=== PATIENT | male | born 1980 | race Caucasian/White ===

== ENCOUNTER 2021-05-25 21:32 | Outpatient (REF) | payer SELFPAY ==
[2021-05-27 13:28] LABS: COVID-19 RT-PCR UVMMC Result Negative (Negative)
== END 2021-05-25 21:33 | disposition home or self-care (01) ==
LOC: LBN ADD 21:32
PROVIDERS: Visit Provider Nurse Practitioner Family
DX: Z20.822 Contact with and (suspected) exposure to COVID-19 (principal); J06.9 Acute upper respiratory infection, unspecified
CPT/HCPCS: U0003

== ENCOUNTER 2021-08-23 20:27 | Outpatient (REF) | payer OTHER, SELFPAY ==
[2021-08-23 21:02] LABS: Abs Immature Grans 0.02 10^3/uL (0.0-0.06); Absolute Basophil Count 0.07 10^3/uL (0.0-0.2); Absolute Eosinophil Count 0.12 10^3/uL (0.0-0.7); Absolute Lymphocyte Count 2.67 10^3/uL (1.2-3.4); Absolute Monocyte Count 0.71 10^3/uL (0.1-0.8); Absolute Neutrophil Count 3.69 10^3/uL (1.2-6.7); Eosinophils % 1.6; HCT 45.2 % (40.0-50.0); HGB 15.5 g/dL (13.5-17.5); Immature Grans % 0.3; Lymphocytes % 36.7; MCH 31.8 pg (27.0-33.0); MCHC 34.3 % (32.0-36.0); MCV 92.8 fL (80-95); MPV 12.6 fL (8.0-11.0); Monocytes % 9.8; Neutrophils % 50.6; Platelet Count 166 10^3/uL (130-400); RBC 4.87 10^6/uL (4.36-5.78); RDW 12.7 % (11.8-14.1); RDW-SD 43.6 fL; WBC 7.28 10^3/uL (4.4-10.8)
[2021-08-23 21:20] LABS: Anion Gap 7.6 mmol/L (3-11); BUN 12 mg/dL (7-18); CO2 27.4 mmol/L (21.0-32.0); Calcium 9.1 mg/dL (8.5-10.1); Chloride 106 mmol/L (98-107); Glucose 137 mg/dL (74-106); Potassium 4.1 mmol/L (3.5-5.1); Sodium 141 mmol/L (136-145); TSH (W/Ref FT4) 1.16 uIU/mL (0.36-3.74)
== END 2021-08-23 20:28 | disposition home or self-care (01) ==
LOC: LBN 20:27
PROVIDERS: Visit Provider Family Medicine
DX: B09 Unspecified viral infection characterized by skin and mucous membrane lesions (principal)
CPT/HCPCS: 80048; 86308; 84443; 85025

== ENCOUNTER 2022-09-13 19:22 | Emergency (ER) | payer OTHER, SELFPAY ==
[2022-09-13 19:26] VITALS: BP 142/92; PULSE 108; RESP 16; TEMP 36.5; O2SAT 97
--- NOTE | 2022-09-13 19:49 | ED.GENADUL_ITS ---
Discharge Plan Disposition Patient Disposition: Home Discharge Details Clinical Impression: Abrasion, corneal Primary Care Provider: Unknown,Unknown ED Provider: Jaspal Lyons Home Meds and New Rx's Prescriptions: New ofloxacin 0.3 % drops See Rx Instructions .ROUTE .COMPLEX Qty: 10 0RF Rx Instructions: put 1-2 drps into affected eye(s) every 2-4 h x 2 days, then 1-2 drps 4 elizabeth es/day days 3-5 Discharge Instructions Instructions: Corneal Abrasion (ED) Additional Instructions: Please use medication as prescribed. Please return to the emergency department have any worsening symptoms Medical Decision Making 42-year-old male presents shortly after having a CO2 canister fell off a shelf onto his right eye, OD 20/40, OS 20/20, evidence of superficial corneal abrasion on fluorescein stain inferior aspect of right cornea, negative Edwar sign, no ulceration, no proptosis, no evidence of maxillary fracture, extraocular motion intact, feeling much better after tetracaine application. We will start patient on ofloxacin. Home care instructions and return precautions given. No evidence of globe rupture or facial bone fracture. HPI General Date/Time Provider Initiated Documentation: 09/13/22 19:35 . HPI Narrative: 42-year-old male presents shortly after having a CO2 canister from a shelf fell onto his right eye. Pain and discharge from right eye. Related Data Home Medications Medication Instructions Recorded Confirmed ofloxacin 0.3 % eye drops See Rx Instructions ophthalmic 09/13/22 (eye) .COMPLEX #10 mL Previous Rx's Medication Instructions Recorded ofloxacin 0.3 % eye drops See Rx Instructions ophthalmic 09/13/22 (eye) .COMPLEX #10 mL General Stated Complaint: EyeProblem JEROD: 3 Review of Systems Narrative: Review of Systems Constitutional: negative Eyes: Eye injury ENT: negative Cardiovascular: negative Respiratory: negative Gastrointestinal: negative : negative Musculoskeletal: negative Skin: negative Neurologic: negative Psych: negative PFSH All Active Problems (Updated 09/13/22 @ 19:55 by Jaspal Lyons MD) Abrasion, corneal (Acute) Social History Smoking/Tobacco Use Status: Current, status unknown Tobacco Type: cigarettes Tobacco: How many years used: 25 Smoking risk assessment performed?: Yes Alcohol Intake: never Substance use type: does not use Do you feel safe at home: Yes Do you feel safe in your relationship?: Yes Exam Narrative Exam Narrative: Physical Examination General: alert, awake, cooperative, resting comfortably, no acute distress HEENT: normocephalic, atraumatic; PERRL, EOM intact, conjunctiva normal; no nasal discharge; moist mucous membranes, oral and pharyngeal mucosa normal, tolerating secretions Eye: Extraocular motion intact, no proptosis, OD 20/40 evidence of superficial corneal abrasions inferior aspect of cornea, negative Edwar sign, no ulceration, OS 20/20 Neck: supple, trachea midline; full ROM Chest: normal to inspection Neuro: AAOx3, normal speech, moving all extremities Psych: Appropriate mood and affect Course Vital Signs Vital signs: Vital Signs Temperature 36.5 C 09/13/22 19:26 Pulse 108 H 09/13/22 19:26 Respiratory Rate 16 09/13/22 19:26 Blood Pressure 142/92 H 09/13/22 19:26 Pulse Oximetry 97 09/13/22 19:26 Temperature 36.5 C 09/13/22 19:26 Temperature Source Oral 09/13/22 19:26 Pulse 108 H 09/13/22 19:26 Respiratory Rate 16 09/13/22 19:26 Respiratory Effort Normal, Non-Labored 09/13/22 19:30 Blood Pressure 142/92 H 09/13/22 19:26 Blood Pressure Position Sitting 09/13/22 19:26 Pulse Oximetry 97 09/13/22 19:26 Oxygen Delivery Method Room Air 09/13/22 19:26 Oxygen Flow Rate 0 09/13/22 19:26 Pain Level 3 09/13/22 19:26
[2022-09-13] MEDS: Fluorescein STRIPS 100/BOX 1 MG (19:57)
[2022-09-13] MEDS: Tetracaine 0.5% 4 ML BTL (19:57)
== END 2022-09-13 20:18 | disposition home or self-care (01) ==
LOC: ER 23:25
PROVIDERS: Emergency Provider Emergency Medicine
DX: S05.01XA Injury of conjunctiva and corneal abrasion without foreign body, right eye, initial encounter (principal); W20.8XXA Other cause of strike by thrown, projected or falling object, initial encounter
CPT/HCPCS: 99283

== ENCOUNTER 2023-08-24 15:02 | Outpatient (REF) | payer OTHER, SELFPAY ==
[2023-08-24 14:34] LABS: HCT 45.6 % (40.0-50.0); HGB 15.8 g/dL (13.5-17.5); MCH 31.9 pg (27.0-33.0); MCHC 34.6 % (32.0-36.0); MCV 92 fL (80-95); MPV 12.4 fL (8.0-11.0); Platelet Count 167 10^3/uL (130-400); RBC 4.96 10^6/uL (4.36-5.78); RDW 12.5 % (11.8-14.1); RDW-SD 42.2 fL; WBC 5.71 10^3/uL (4.4-10.8)
[2023-08-24 15:41] LABS: Hemoglobin A1C 6.9 % (<5.7)
[2023-08-24 21:04] LABS: ALT 65 U/L (16-63); AST 30 U/L (15-37); Albumin 4.1 g/dL (3.4-5.0); Alkaline Phosphatase 47 U/L (46-116); BUN 12 mg/dL (7-18); Bilirubin, Total 0.5 mg/dL (0.2-1.0); CREATININE 1.1 mg/dL (0.70-1.30); Calcium 9.2 mg/dL (8.5-10.1); Calculated LDL 77 mg/dL (<100); Chloride 104 mmol/L (98-107); Cholesterol 149 mg/dL (<200); Estimated GFR 85.42 (mL/min/1.73m2); Glucose 192 mg/dL (74-106); HDL Cholesterol 52 mg/dL (40-60); Potassium 4.3 mmol/L (3.5-5.1); Sodium 140 mmol/L (136-145); TSH (W/Ref FT4) 1.39 uIU/mL (0.36-3.74); Total Protein 6.9 g/dL (6.4-8.2); Triglyceride 101 mg/dL (<150)
== END 2023-08-24 15:03 | disposition home or self-care (01) ==
LOC: NCHCN 15:02
PROVIDERS: Visit Provider Nurse Practitioner Family
DX: F41.8 Other specified anxiety disorders (principal); R79.89 Other specified abnormal findings of blood chemistry; E66.01 Morbid (severe) obesity due to excess calories; Z68.41 Body mass index [BMI] 40.0-44.9, adult
CPT/HCPCS: 80053; 80061; 85027; 83036; 84443

== ENCOUNTER 2024-04-03 11:35 | Emergency (ER) | payer OTHER, SELFPAY ==
[2024-04-03 11:38] VITALS: BP 141/118; PULSE 96; RESP 15; TEMP 36.3; O2SAT 98
--- NOTE | 2024-04-03 12:25 | DI.RAD_ITS ---
Exam(s) XR TIB/FIB RT EXAM: XR TIB/FIB RT CLINICAL HISTORY: Pain, bruising, Fall. TECHNIQUE: 2D digital imaging was performed. Two views. COMPARISON: No exams were available for comparison FINDINGS: BONES: No acute fracture is present. No bony destructive lesion is seen. Visualized portion of knee a nd ankle joints are unremarkable. SOFT TISSUE: Anterior swelling. IMPRESSION: No acute bony abnormality. DATA REPOSITORY: RADIATION DOSE DELIVERED:
[2024-04-03 13:21] VITALS: BP 162/105; PULSE 93; O2SAT 94
--- NOTE | 2024-04-04 10:38 | ED.GENADUL_ITS ---
Discharge Plan Disposition Patient Disposition: Home Condition: Stable Discharge Details Clinical Impression: Abrasion of skin, Contusion of skin Primary Care Provider: Unknown,Unknown ED Provider: Carol Rogers Home Meds and New Rx's Prescriptions: New cephalexin 500 mg capsule 500 mg PO Q6H 7 Days Qty: 28 0RF Continued bupropion HCl 300 mg tablet extended release 24 hr 300 mg PO DAILY Discharge Instructions Instructions: Acute Pain, Adult Additional Instructions: keep wounds clean and dry take keflex for developing skin infection motrin/tylenol as needed for pain return with spreading redness, fever, worsening pain Discharge Data Discharge Date/Time-TO BE ENTERED AT DEPARTURE: 04/03/24 13:29 HPI General Date/Time Provider Initiated Documentation: 04/03/24 13:02 . HPI Narrative: This 43-year-old male presents with right lower leg pain after falling onto a stone while walking his dog in 29 March. He states that he had a large abrasion but the pain has been worsening over the course of the past weekend and has had prior surgery on his knee so he wanted to get checked out. He denies any additional traumas associated with the fall. Related Data Home Medications ?Medication ?Instructions ?Recorded ?Confirmed bupropion HCl 300 mg 24 hr tablet, 300 mg PO DAILY 04/03/24 04/03/24 extended release cephalexin 500 mg capsule 500 mg PO Q6H 7 days #28 caps 04/03/24 Previous Rx's ?Medication ?Instructions ?Recorded cephalexin 500 mg capsule 500 mg PO Q6H 7 days #28 caps 04/03/24 Allergies Allergy/AdvReac Type Severity Reaction Status Date / Time No Known Allergies Allergy Unverified 04/03/24 11:42 General Stated Complaint: Orthopedic JEROD: 4 Exam Narrative Exam Narrative: 43-year-old male presenting in no acute distress with a large abrasion which looks like it is developing infection right lower extremity with palpable tenderness overlying the proximal tibia. No purulent drainage or fluctuance. No obvious effusion to knee or tenderness to any, no tenderness to ankle or hip appreciated on acute exam. Alert and oriented x 4, ambulatory Course Vital Signs Vital signs: Vital Signs Temperature 36.3 C L 04/03/24 11:38 Pulse 96 H 04/03/24 11:38 Respiratory Rate 15 04/03/24 11:38 Blood Pressure 141/118 H 04/03/24 11:38 Pulse Oximetry 98 12/04/24 11:38 Temperature 36.3 C L 04/03/24 11:38 Pulse 93 H 04/03/24 13:21 Respiratory Rate 15 04/03/24 11:38 Respiratory Effort Normal 04/03/24 13:26 Blood Pressure 162/105 H 04/03/24 13:21 Blood Pressure Position Sitting 04/03/24 11:38 Pulse Oximetry 94 04/03/24 13:21 Oxygen Delivery Method Room Air 04/03/24 13:21 Oxygen Flow Rate 0 04/03/24 13:21 Pain Level 3 04/03/24 13:21 Medical Decision Making 40-year-old male presenting in no acute distress for right lower extremity tenderness after a fall, x-ray of tib-fib does not show evidence of acute abnormality per radiology interpretation and my review. I will treat with Keflex for suspected developing cellulitis. Patient will keep wound clean and dry with recheck in 3 to 4 days recommended. Patient will need blood pressure rechecked by primary care physician as his diastolics quite high although patient is asymptomatic with this finding. Return precautions reviewed and patient expressed understanding. Afebrile and otherwise nontoxic in appearance Quality:SDOH Health Related Social Needs: No Data to Display PFSH All Active Problems (Updated 04/03/24 @ 13:03 by LUCAS Simms) Contusion of skin (Acute) Abrasion of skin (Acute) Social History Smoking/Tobacco Use Status: Current, status unknown Tobacco Type: cigarettes Tobacco: How many years used: 25 Smoking risk assessment performed?: Yes Alcohol Intake: never Substance use type: does not use Do you feel safe at home: Yes Do you feel safe in your relationship?: Yes
== END 2024-04-03 13:29 | disposition home or self-care (01) ==
PROVIDERS: Emergency Provider Physician Assistant
DX: S80.811A Abrasion, right lower leg, initial encounter (principal); W01.198A Fall on same level from slipping, tripping and stumbling with subsequent striking against other object, initial encounter; Y93.01 Activity, walking, marching and hiking
CPT/HCPCS: 99283; 73590

== ENCOUNTER 2024-04-27 12:09 | Outpatient (CLI) | payer OTHER, SELFPAY ==
--- NOTE | 2024-04-27 14:45 | DI.RAD_ITS ---
Exam(s) XR KNEE LT 3V AP,LAT,ALBER EXAM: XR KNEE LT 3V AP,LAT,ALBER CLINICAL HISTORY: knee pain, left, fall. TECHNIQUE: 2D digital imaging was performed. Three views. COMPARISON: No exams were available for comparison FINDINGS: BONES: No acute fracture is present. No bony destructive lesion is seen. JOINTS: The joint spaces are maintained. Minimal periarticular spurring. The knee is normally align ed. A small joint effusion is seen. SOFT TISSUE: Normal. IMPRESSION: Small joint effusion. No evidence of fracture. DATA REPOSITORY: RADIATION DOSE DELIVERED:
--- NOTE | 2024-04-27 16:28 | DI.VRAD_ITS ---
PROCEDURE INFORMATION: Exam: XR Left Knee Exam date and time: 04/27/2024 2:57 PM Age: 43 years old Clinical indication: Injury or trauma; Fall; Blunt trauma; Knee; Left TECHNIQUE: Imaging protocol: Radiologic exam of the left knee. Views: 3 views. COMPARISON: US SOFT TISS EXTREMITY/GROIN 10/03/2023 11:10 AM FINDINGS: Bones/joints: A small joint effusion is present. Bone density is grossly appropriate. Alignment is anatomic. No evidence for fracture. Soft tissues: Normal. IMPRESSION: 1. Minimal joint effusion. No evidence for fracture. Dictated and Authenticated by: Aure Bird MD. Ordering:NEFTALI Alvares MD
== END 2024-04-27 12:29 ==
LOC: DI 06-18 12:11
PROVIDERS: Visit Provider Physician Assistant
DX: M25.562 Pain in left knee (principal); M25.462 Effusion, left knee
CPT/HCPCS: 73562

== ENCOUNTER 2024-09-08 19:24 | Emergency (ER) | payer OTHER, SELFPAY ==
[2024-09-08 19:32] VITALS: BP 139/96; PULSE 97; RESP 16; TEMP 36.4; O2SAT 96
[2024-09-08] MEDS: Amox. 875/Clav. 125, 2 TABS/BTL 1 TAB PO (20:18)
[2024-09-08] MEDS: Diph,Pertuss(Acell),Tet Vac/Pf 0.5 ML SYR IM (20:19)
--- NOTE | 2024-09-09 | ED.GENADUL_ITS ---
Discharge Plan Disposition Patient Disposition: Home Condition: Good Discharge Details Clinical Impression: Dog bite of left forearm with infection Primary Care Provider: Unknown,Unknown ED Provider: Gabriela Herrera Home Meds and New Rx's Prescriptions: New amoxicillin-pot clavulanate 875-125 mg tablet 1 tab PO BID Qty: 14 0RF No Action bupropion HCl 300 mg tablet extended release 24 hr 300 mg PO DAILY lisinopril 5 mg tablet 5 mg PO ONCE Patient Comments: TAKE ONE TABLET BY MOUTH EVERY DAY Discharge Instructions Instructions: Animal Bites ED Additional Instructions: Please call [facility] first thing in the morning to schedule follow-up appointment for reevaluation within the week. You are being treated for an infected dog bite. Take the amoxicillin for the full course as prescribed; I recommend that you take this with a probiotic such as Activia yogurt to help prevent antibiotic associated diarrhea. Please clean the wound twice daily with antibacterial soap and water. Use a warm compress for 10 to 15 minutes at a time 4-5 times a day. May use Tylenol or ibuprofen as needed for discomfort. Your tetanus was updated today Return to emergency You develop new fever/chills, general malaise, worsening redness/swelling/pain despite treatment, numbness to your hand/color change to your hand, or if you are very worried you need to be rechecked again immediately Referrals: [facility] [Provider Group] Discharge Data Discharge Date/Time-TO BE ENTERED AT DEPARTURE: 09/08/24 20:26 HPI <Patito Joe MD - Last Filed: 09/09/24 00:02> General Date/Time Provider Initiated Documentation: 09/08/24 19:36 . Related Data Home Medications ?Medication ?Instructions ?Recorded ?Confirmed bupropion HCl 300 mg 24 hr tablet, 300 mg PO DAILY 04/03/24 09/08/24 extended release amoxicillin 875 mg-potassium 1 tab PO BID #14 tabs 09/08/24 clavulanate 125 mg tablet lisinopril 5 mg tablet 5 mg PO ONCE 09/08/24 09/08/24 Previous Rx's ?Medication ?Instructions ?Recorded amoxicillin 875 mg-potassium 1 tab PO BID #14 tabs 09/08/24 clavulanate 125 mg tablet Allergies Allergy/AdvReac Type Severity Reaction Status Date / Time No Known Allergies Allergy Unverified 09/08/24 19:49 <Gabriela Agee Last Filed: 09/09/24 00:08> HPI Narrative: Axel is a 44-year-old male who presented to the emergency department for evaluation of a dog bite. Accompanied by his . Sustained injury couple days ago while intervening between his two dogs during a fight. Initially a minor skin abrasion with puncture wound despite cleaning with rubbing alcohol and antibiotic ointment, noticed purulent discharge today. Surrounding area of erythema appeared today, progressively enlarging since this morning, approximately doubled in size. Reports mild hand stiffness, sensation intact to fingers. Denies numbness, fever/chills, general malaise, or other illness. No history of diabetes or immunocompromised state. Uncertain about last tetanus vaccination, estimates over 8 years ago. Dogs up-to-date with vaccinations. No recent antibiotic use or known allergies to antibiotics. Dogs are his own, up-to-date for vaccinations. General Stated Complaint: AnimalBite JEROD: 4 Review of Systems <Gabriela Agee Last Filed: 09/09/24 00:08> Narrative: See HPI Exam <Gabriela Agee Last Filed: 09/09/24 00:08> Const General: cooperative, healthy appearing, comfortable, no acute distress and well developed Nutritional Appearance: average body habitus Orientation: alert and oriented x3 Skin Wounds: wounds noted (L forearm, abrasion and puncture wound) Neuro General: patient alert, patient oriented x3, tone normal and moves all extremities Motor: muscle tone normal throughout and strength 5/5 throughout Sensory Exam: no sensory deficits noted Extrem Right upper extremity: normal to inspection Left upper extremity: full ROM, no joint enlargement and elbow/forearm Details: swelling, normal ROM, warmth and distal pulses intact; no deformity Other: Course <Gabriela Day Filed: 09/09/24 00:08> Vital Signs Vital signs: Vital Signs Temperature 36.4 C 09/08/24 19:32 Pulse 97 H 09/08/24 19:32 Respiratory Rate 16 09/08/24 19:32 Blood Pressure 139/96 H 09/08/24 19:32 Pulse Oximetry 96 09/08/24 19:32 Temperature 36.4 C 09/08/24 19:32 Temperature Source Temporal Artery Scan 09/08/24 19:32 Pulse 97 H 09/08/24 19:32 Respiratory Rate 16 09/08/24 19:32 Blood Pressure 139/96 H 09/08/24 19:32 Blood Pressure Position Sitting 09/08/24 19:32 Pulse Oximetry 96 09/08/24 19:32 Oxygen Delivery Method Room Air 09/08/24 19:32 Oxygen Flow Rate 0 09/08/24 19:32 Pain Level 1 09/08/24 19:32 Procedure <Patito Joe MD - Last Filed: 09/09/24 00:02> Abscess Drainage Provider that performed the procedure: Patito Joe Medical Decision Making <Patito Joe MD - Last Filed: 09/09/24 00:02> Quality:[facility] Health Related Social Needs: 2 No Data to Display <Gabriela Pike - Last Filed: 09/09/24 00:08> Initial Assessment: 44-year-old male presents with a dog bite from yesterday, showing signs of infection including increased redness, swelling, and pus discharge. No history of diabetes or immunocompromise. ED Course: - Prescribe antibiotics for infection management. - Administer tetanus vaccine, last shot over 8 years ago. - No need for blood work as the patient feels fine otherwise. - Took a picture of the wound for the chart. -POCUS performed, mild cobblestoning of subcutaneous tissue noted, no abscess or fluid collection Final Assessment: The patient has a dog bite with signs of infection; no red flags concerning for systemic spread of infection/sepsis requiring diagnostic imaging or labs. Treatment includes antibiotics and a tetanus vaccine. No need for further diagnostic tests at this time. Clinical Impression: - Dog bite with infection Disposition: - Discharge - Follow-Up: Advise follow-up with primary care physician at [facility] MDM Components Evaluation: - Number of Differential Diagnoses or Management Options: Dog bite with infection - Amount and Complexity of Data Reviewed: No need for blood work, took a picture of the wound for the chart. - Risk of Complication and Morbidity or Mortality: Low risk as the patient feels fine otherwise and has no history of diabetes or immunocompromise. Patient consented to the use of LJ PFSH <Patito Joe MD - Last Filed: 09/09/24 00:02> All Active Problems (Updated 05/11/25 @ 19:47 by Gabriela Pike) Dog bite of left forearm with infection (Acute) Social History Smoking/Tobacco Use Status: Current, status unknown Tobacco Type: cigarettes Tobacco: How many years used: 25 Smoking risk assessment performed?: Yes Alcohol Intake: never Substance use type: does not use Do you feel safe at home: Yes Do you feel safe in your relationship?: Yes POCUS Exam (ED) <Patito Joe MD - Last Filed: 09/09/24 00:02> Limited Soft Tissue Exam DATE OF EXAM: 09/09/24 TIME OF EXAM: 20:15 PROVIDER THAT PERFORMED THE STUDY: Patito Joe IS THIS A REPEAT EXAM DURING THIS ENCOUNTER: No LOCATION OF EXAM: Upper extremity/left REASON FOR EXAM: Pain, Redness and Swelling VISUALIZED STRUCTURES: Fascia, Muscle, Skin and Subcutaneous tissue PERTINENT FINDINGS/IMPRESSION: No apparent abnormalities. Exam Complete INCIDENTAL FINDINGS: No significant cobblestoning, no fluid collection or free air, no concern for abscess or extensive cellulitis.
== END 2024-09-08 20:26 | disposition home or self-care (01) ==
PROVIDERS: Emergency Provider Nurse Practitioner Family
DX: S51.852A Open bite of left forearm, initial encounter (principal); W54.0XXA Bitten by dog, initial encounter; L08.89 Other specified local infections of the skin and subcutaneous tissue
CPT/HCPCS: 99284; 99283; 90471; 76882; 90715

== ENCOUNTER 2024-11-16 14:44 | Emergency (ER) | payer OTHER, SELFPAY ==
[2024-11-16 15:30] VITALS: BP 131/87; PULSE 101; RESP 16; TEMP 36.3; O2SAT 93
--- NOTE | 2024-11-16 16:19 | W.ED.GENAD ---
Discharge Plan Disposition Patient Disposition: Home Condition: Stable Discharge Details Clinical Impression: Infection of tooth Primary Care Provider: Unknown,Unknown ED Provider: Patito Joe Home Meds and New Rx's Prescriptions: New amoxicillin-pot clavulanate 875-125 mg tablet 1 tab PO BID 10 Days Qty: 20 0RF tramadol 50 mg tablet 50 mg PO Q8H PRNQty: 10 0RF Discontinued amoxicillin 500 mg capsule 500 mg PO TID Patient Comments: TAKE ONE CAPSULE BY MOUTH THREE TIMES A DAY UNTIL GONE FOR DENTAL INFECTION No Action bupropion HCl 300 mg tablet extended release 24 hr 300 mg PO DAILY lisinopril 5 mg tablet 5 mg PO ONCE Patient Comments: TAKE ONE TABLET BY MOUTH EVERY DAY Discharge Instructions Instructions: Tooth Abscess (DC) Additional Instructions: You were seen in the emergency department today for evaluation of worsening tooth pain in the setting of a known dental infection. In our department you had a full physical examination performed, and we are going to change your antibiotics to Augmentin. You received your first dose here today and the remainder was sent to your pharmacy. Please take all of this medication until it is gone, even if you start to feel better, and less your dental professional instructs you to change. I have provided you with a short course of tramadol for severe breakthrough pain. Please avoid driving or operating machinery while under the effects of this medication as it can cause drowsiness. Please use therapeutic dosing of Tylenol (acetaminophen) & Advil (ibuprofen) in an alternating fashion as follows: Take 1000mg of Tylenol every 6 hours without missing doses- that is 4 times per day. Assisted in between the Tylenol doses, take 600mg of Advil also on a 6 hour schedule, that is also 4 times per day. With this strategy, you will be taking something for fever/pain as often as every 3 hours. The daily maximum dosing of Tylenol is 4000mg, and the daily maximum dosing of Advil is 2400mg. Please note that some common cold medications & prescription pain medications may contain acetaminophen and you need to read OTC drug labels and factor that in to maximum daily doses. Please keep your dental appointment, and return to the emergency department with any concerns for fever, chills, inability to open your mouth or swallow, worsening of the swelling that involves the floor of your mouth or your eyes, or any other symptoms that cause you concern. Please follow-up with your primary care provider in the next few days to discuss this visit and any symptoms that change, worsen, or persist. Thank you for allowing us to be part of your care. Discharge Data Discharge Date/Time-TO BE ENTERED AT DEPARTURE: 11/16/24 16:38 HPI General Mode of arrival: ambulatory. Date/Time Provider Initiated Documentation: 11/16/24 15:05. Limitations to Documentation: no limitations. Information obtained by: patient, family and old records reviewed. HPI Narrative: This is a 44-year-old male patient with a past medical history significant for hypertension, presenting for evaluation of a tooth infection. The patient reports that he has had a fractured tooth for some time, and has had tooth pain and has had difficulty scheduling with a dentist. He was finally able to get a root canal scheduled for approximately 1 week from now. He was started on antibiotics for a dental abscess, has been taking amoxicillin for 3 days. He has been trying to manage his pain in the outpatient environment with Tylenol and ibuprofen but states that his pain and swelling are getting significantly worse. Today his pain seems to radiate up into his cheek and towards his ear, prompting him to seek care. He reports that he has been able to eat and drink, has not had difficulty swallowing or opening his mouth. He has not noted fever, vision changes. He reports that the pain is located adjacent to the tooth primarily, touching the tooth itself does not seem to hurt anymore. Related Data Home Medications ?Medication ?Instructions ?Recorded ?Confirmed bupropion HCl 300 mg 24 hr tablet, 300 mg PO DAILY 04/03/24 11/16/24 extended release lisinopril 5 mg tablet 5 mg PO ONCE 09/08/24 11/16/24 amoxicillin 875 mg-potassium 1 tab PO BID 10 days #20 tabs 11/16/24 clavulanate 125 mg tablet tramadol 50 mg tablet 50 mg PO Q8H PRN #10 tabs 11/16/24 Previous Rx's ?Medication ?Instructions ?Recorded amoxicillin 875 mg-potassium 1 tab PO BID 10 days #20 tabs 11/16/24 clavulanate 125 mg tablet tramadol 50 mg tablet 50 mg PO Q8H PRN #10 tabs 11/16/24 Allergies Allergy/AdvReac Type Severity Reaction Status Date / Time No Known Allergies Allergy Unverified 11/16/24 15:36 General Stated Complaint: DentalOral JEROD: 3 Exam Narrative Exam Narrative: Gen: Awake and alert, in no apparent distress HEENT: Non-icteric sclera, PERRL, EOMs are full. The patient has multiple dental caries, his left upper second molar has an erosion/fracture with some surrounding gingival redness, no periapical abscess visualized. Tenderness to palpation over the left maxillary region. No trismus, posterior pharynx is clear, floor of the mouth is soft Neck: Supple, full range of motion and no tender lymphadenopathy Lungs: No apparent respiratory distress, normal respiratory effort. CV: Appears well perfused, strong distal pulses Abdomen: Non-distended MSK: Moves 4 extremities without apparent limitation in ROM Skin: Visualized skin without rashes, cyanosis. Neuro: Normal Gait, no obvious focal deficits or facial asymmetry. Speaks in full, clear sentences. Psych: Appropriate for situation. Course Vital Signs Vital signs: Vital Signs Temperature 36.3 C L 11/16/24 15:30 Pulse 101 H 11/16/24 15:30 Respiratory Rate 16 11/16/24 15:30 Blood Pressure 131/87 11/16/24 15:30 Pulse Oximetry 93 11/16/24 15:30 Temperature 36.3 C L 11/16/24 15:30 Temperature Source Oral 11/16/24 15:30 Pulse 101 H 11/16/24 15:30 Respiratory Rate 16 11/16/24 15:30 Blood Pressure 131/87 11/16/24 15:30 Blood Pressure Position Sitting 11/16/24 15:30 Pulse Oximetry 93 11/16/24 15:30 Oxygen Delivery Method Room Air 11/16/24 15:30 Oxygen Flow Rate 0 11/16/24 15:30 Pain Level 6 11/16/24 15:30 Medical Decision Making This is a 44-year-old male patient presenting for evaluation of dental pain and infection despite antibiotic use. My differential includes but is not limited to dental infection, dental ceci disease, fractured tooth. I am reassured against severe deep space infection by my physical examination and the patient's lack of fever, significant tachycardia, or hypotension. He is tolerating oral intake and I have a low concern for metabolic or electrolyte derangement, dehydration or kidney injury. No systemic symptoms to suggest sepsis or bacteremia. Given the lack of improvement on amoxicillin I feel that it is reasonable to extend his coverage to Augmentin, and a prescription for this was sent to his pharmacy. His first dose was taken here in the emergency department. I counseled the patient on multimodal pain management and did provide him with a short course of tramadol for breakthrough pain to get him through to his appointment. He reports that this is an opioid that he is tolerated best in the past, he had some negative side effects with hydrocodone and oxycodone. Given that the patient does not have tenderness to touch of the tooth and likely has experienced of the root given the prolonged period of time since the initial fracture, I do not think he would benefit from application of dental wax. At this time, the patient has had a full medical evaluation and is safe for discharge to home. They are hemodynamically stable, ambulatory, and tolerating PO. They are understanding of the follow-up plan and return precautions. They left our facility without incident. Patito Joe MD [facility] All Active Problems (Updated 11/16/24 @ 16:20 by Patito Joe MD) Infection of tooth (Acute) Social History Smoking/Tobacco Use Status: Current, status unknown Tobacco Type: e-cigarettes Smoking risk assessment performed?: Yes Alcohol Intake: never Drug use: Occasionally Substance use type: marijuana Do you feel safe at home: Yes Do you feel safe in your relationship?: Yes
[2024-11-16] MEDS: traMADol 50 MG TAB PO (16:27)
[2024-11-16] MEDS: Amoxicillin 875/Clav. 125 TAB PO (16:27)
[2024-11-16 16:36] VITALS: BP 138/89; PULSE 88; RESP 16; TEMP 36.3; O2SAT 98
== END 2024-11-16 16:38 | disposition home or self-care (01) ==
PROVIDERS: Emergency Provider Emergency Medicine
DX: R68.84 Jaw pain (principal); K04.7 Periapical abscess without sinus
CPT/HCPCS: 99283 ×2; 87040